=== PATIENT | female | born 1980 | race Caucasian/White ===

== ENCOUNTER 2018-03-17 12:56 | Emergency (ER) | payer SELFPAY ==
[2018-03-17 13:24] LABS: Urine Specific Gravity 1.015 (1.005-1.030)
[2018-03-17 13:25] LABS: Urine Blood NEGATIVE (NEG); Urine Glucose NEGATIVE (NEG); Urine Protein NEGATIVE (NEG); Urine Specific Gravity 1.015 (1.005-1.030)
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
[2018-03-17 15:20] VITALS: TEMP 98.3; O2SAT 100
[2018-03-17 15:23] VITALS: BP 126/75
--- NOTE | 2018-03-17 16:02 | RAD REPORT ---
EXAM DESCRIPTION: RAD - Lumbar Spine 3 Views - 03/17/2018 2:25 pm CLINICAL HISTORY: Back pain FINDINGS: The alignment of the lumbar spine is satisfactory. No fracture or dislocation is seen.
--- NOTE | 2018-03-17 16:03 | RAD REPORT ---
EXAM DESCRIPTION: RAD - Thoracic Spine Ap/Lat - 03/17/2018 2:25 pm CLINICAL HISTORY: Back pain FINDINGS: The alignment of the thoracic spine is satisfactory. No fracture or dislocation is seen
--- NOTE | 2018-03-17 17:37 | RAD REPORT ---
EXAM DESCRIPTION: RAD - Wrist Right 3 View - 03/17/2018 2:25 pm CLINICAL HISTORY: Right wrist pain status post injury FINDINGS: No acute fracture or dislocation is seen. Plate and screws affix an old ulnar fracture If the patient continues to have symptoms to suggest an occult fracture then a followup plain film se andressa in 7 days would be recommended.
--- NOTE | 2018-03-17 17:39 | RAD REPORT ---
EXAM DESCRIPTION: RAD - Wrist Left 3 View - 03/17/2018 2:25 pm CLINICAL HISTORY: Left wrist pain status post injury FINDINGS: No acute fracture or dislocation is seen. Sideplate and screws affix an old fracture of th e ulna. If the patient continues to have symptoms to suggest an occult fracture then a followup plain film se andressa in 7 days would be recommended
== END 2018-03-17 15:15 | disposition home or self-care (01) ==
LOC: ER 12:56
DX: S29.012A Strain of muscle and tendon of back wall of thorax, initial encounter (principal); S39.011A Strain of muscle, fascia and tendon of abdomen, initial encounter; S39.012A Strain of muscle, fascia and tendon of lower back, initial encounter; S39.013A Strain of muscle, fascia and tendon of pelvis, initial encounter; S60.212A Contusion of left wrist, initial encounter; S60.211A Contusion of right wrist, initial encounter; V89.2XXA Person injured in unspecified motor-vehicle accident, traffic, initial encounter; Y92.410 Unspecified street and highway as the place of occurrence of the external cause; F17.210 Nicotine dependence, cigarettes, uncomplicated
CPT/HCPCS: 72070; 72100; 81003; 81025; 99284